=== PATIENT | female | born 1945 | race Caucasian/White ===

== ENCOUNTER 2017-09-25 16:03 | Emergency (ER) | payer SELFPAY ==
[~2017-09-25] VITALS: Ht 170.2 cm; Wt 68.9 kg
[2017-09-25 17:33] LABS: INFLUENZA A PATIENT NEGATIVE (NEGATIVE); INFLUENZA B PATIENT NEGATIVE (NEGATIVE)
[2017-09-25] MEDS ORDERED: AMOX500C PO (18:13)
--- NOTE | 2017-09-25 18:13 | PHYS DOC ---
Past History Past Medical History: Depression, Hypertension, Other Past Surgical History: Colectomy, Hysterectomy, Tonsillectomy Alcohol Use: None Drug Use: None Adult General Chief Complaint Chief Complaint: FLU SYMPTOM HPI HPI Patient is a 71 year old F who presents with cough over the past 3-4days. She states that this after noon she had an episode of coughing that was followed by an episode of a vomiting. She states that she is breathing normally. She denies fever or chills. She has no other associated symptoms and no exacerbating or alleviating factors. Review of Systems Review of Systems Constitutional: Denies fever or chills [] Eyes: Denies change in visual acuity, redness, or eye pain [] HENT: Denies sore throat [] Mild nasal congestion Respiratory: Denies shortness of breath [] Cardiovascular: No additional information not addressed in HPI [] GI: Denies abdominal pain, nausea, vomiting, bloody stools or diarrhea [] : Denies dysuria or hematuria [] Musculoskeletal: Denies back pain or joint pain [] Integument: Denies rash or skin lesions [] Neurologic: Denies headache, focal weakness or sensory changes [] Endocrine: Denies polyuria or polydipsia [] All other systems were reviewed and found to be within normal limits, except as documented in this note. Family History Family History No significant family history reported Current Medications Current Medications Current medications were reviewed Allergies Allergies Allergies reviewed Physical Exam Physical Exam Constitutional: Well developed, well nourished, no acute distress, non-toxic appearance. [] HENT: Normocephalic, atraumatic, bilateral external ears normal, oropharynx moist, no oral exudates. Moderate nasal congestion Eyes: EOMI, conjunctiva normal, no discharge. Neck: Normal range of motion, no tenderness, supple, no stridor. Cardiovascular:Heart rate regular rhythm, Lungs & Thorax: Bilateral breath sounds clear to auscultation [] Abdomen: Bowel sounds normal, soft, no tenderness, no masses, no pulsatile masses. [] Skin: Warm, dry, no erythema, no rash. [] Back: No tenderness, no CVA tenderness. [] Extremities: No tenderness, no cyanosis, no clubbing, ROM intact, no edema. [] Neurologic: Alert and oriented X 3, normal motor function, normal sensory function, no focal deficits noted. [] Psychologic: Affect normal, judgement normal, mood normal. [] Current Patient Data Vital Signs Vital Signs Date Time Temp Pulse Resp B/P (MAP) Pulse Ox O2 Delivery O2 Flow Rate FiO2 09/25/17 16:05 98.3 69 20 98 Room Air Lab Results Laboratory Tests Test 09/25/17 16:52 Influenza Type A (Rapid) Negative (NEGATIVE) Influenza Type B (Rapid) Negative (NEGATIVE) EKG EKG [] Radiology/Procedures Radiology/Procedures Chest xray Impressions: Mild RLL infiltrate Course & Med Decision Making Course & Med Decision Making Pertinent Labs and Imaging studies reviewed. (See chart for details) CURB 65 score: 1 for age Admission was declined. Mary was accompanied by her son, grandson and a son on the phone. Dragon Disclaimer Dragon Disclaimer This electronic medical record was generated, in whole or in part, using a voice recognition dictation system. Departure Departure: Impression: Primary Impression: Pneumonia Disposition: HOME, SELF-CARE Condition: STABLE Patient Instructions: Pneumonia, Adult Additional Instructions: Mary was seen in the emergency department for cough. No emergency medical condition was found on history or physical exam. She had an x-ray which showed possible mild pneumonia. She was started on an antibiotic as precaution. She is encouraged to return to the emergency room immediately if she develops new or worsening symptoms. She is also advised follow-up with her primary care doctor in the next 1-2 days for further management. Scripts Amoxicillin (AMOXICILLIN) 500 Mg Capsule 1 CAP PO TID for 7 Days, #21 CAP Prov: AGNIESZKA WILSON MD 09/25/17 Problem Qualifiers Primary Impression: Pneumonia Pneumonia type: due to unspecified organism Laterality: right Lung location : lower lobe of lung Qualified Codes: J18.1 - Lobar pneumonia, unspecified organism AGNIESZKA WILSON MD Sep 25, 2017 18:13
[2017-09-25 18:25] VITALS: BP 145/55
[2017-09-25] MEDS ORDERED: AMOXICILLIN 250 MG CAPSULE PO ONE (18:30)
--- NOTE | 2017-09-26 08:44 | RAD ---
Chest, 2 views, 09/25/2017: History: Cough, flulike symptoms The heart size and pulmonary vascularity are normal. No pulmonary infiltrates are seen. There is no evidence of pleural fluid. IMPRESSION: No acute cardiopulmonary abnormality is detected.
== END 2017-09-25 18:27 | disposition home or self-care (01) ==
LOC: ER 16:03
DX: J18.1 Lobar pneumonia, unspecified organism (principal); I10 Essential (primary) hypertension; F32.9 Major depressive disorder, single episode, unspecified
CPT/HCPCS: 71020; 87804; 99285

== ENCOUNTER 2017-11-20 10:13 | Inpatient (IN) | payer MEDICARE, OTHER ==
[~2017-11-20] VITALS: Ht 170.2 cm; Wt 68.9 kg
[~2017-11-20 10:13] MED LIST: AMOX500C PO
[2017-11-20] MEDS ORDERED: IV NORMAL SALINE 1,000ML 1,000 ML IV ONE (10:30)
[2017-11-20] MEDS ORDERED: ONDANSETRON PF 4 MG/2 ML VIAL. IV ONE ×2 (10:30→13:00)
[2017-11-20 10:37] LABS: BASO % 1 % (0-3); EOS # 0.2 x10^3/uL (0.0-0.7); EOS % 3 % (0-3); HEMATOCRIT 41.3 % (36.0-47.0); HEMOGLOBIN 14.3 g/dL (12.0-15.5); LYMPH # 1.9 x10^3/uL (1.0-4.8); LYMPH % 34 % (24-48); MEAN CORPUSCULAR HEMOGLOBIN 31 pg (25-35); MEAN CORPUSCULAR HGB CONC 35 g/dL (31-37); MEAN CORPUSCULAR VOLUME 89 fL (79-100); MONO # 0.4 x10^3/uL (0.0-1.1); MONO % 8 % (0-9); NEUT % 55 % (31-73); PLATELET COUNT 341 x10^3/uL (140-400); RED BLOOD COUNT 4.66 x10^6/uL (3.50-5.40); WHITE BLOOD COUNT 5.5 x10^3/uL (4.0-11.0)
--- NOTE | 2017-11-20 10:41 | ED.ADGEN ---
Past History Past Medical History: Depression, Hypertension, Other Past Surgical History: Colectomy, Hysterectomy, Tonsillectomy Alcohol Use: None Drug Use: None Adult General Chief Complaint Chief Complaint nausea and vomiting HPI HPI Patient is a 72 year old female who presents with nausea and vomiting since overnight, multiple episodes of nonbloody nonbilious vomit. She denies any dysuria or increased urinary frequency, no changes in bowel movements. She denies known fevers, no body aches or headaches, no chest pain or shortness of breath. Denies abdominal pain. Pt takes meds for htn but denies a PCP Review of Systems Review of Systems Constitutional: Denies fever or chills [] Eyes: Denies change in visual acuity, redness, or eye pain [] HENT: Denies nasal congestion or sore throat [] Respiratory: Denies cough or shortness of breath [] Cardiovascular: Denies chest pain GI: Denies abdominal pain : Denies dysuria or hematuria [] Musculoskeletal: Denies back pain or joint pain [] Integument: Denies rash or skin lesions [] Neurologic: Denies headache, focal weakness or sensory changes [] Current Medications Current Medications Current Medications Medications (Trade) Dose Ordered Sig/Lisette Start Time Stop Time Status Last Admin Dose Admin Acetaminophen (Tylenol) 650 mg PRN Q4HRS PRN 11/20/17 14:15 11/21/17 14:14 11/21/17 08:40 650 MG Ondansetron HCl (Zofran) 4 mg PRN Q4HRS PRN 11/20/17 14:15 11/21/17 14:14 Sodium Chloride 1,000 ml @ 1,000 mls/hr 1X ONCE 11/20/17 10:30 11/20/17 11:29 DC 11/20/17 10:38 1,000 MLS/HR Physical Exam Physical Exam Constitutional: Well developed, well nourished, ill appearing, non-toxic appearance.actively vomiting clear vomit HENT: Normocephalic, atraumatic, bilateral external ears normal, oropharynx moist, no oral exudates, nose normal. [] Eyes: PERRLA, EOMI, conjunctiva normal, no discharge. [] Neck: Normal range of motion, no tenderness, supple, no stridor. [] Cardiovascular:Heart rate regular with regular rhythm, no murmur [] Lungs & Thorax: Bilateral breath sounds clear to auscultation, no wheeze or crackles Abdomen: Bowel sounds normal, soft, no tenderness, no masses, no pulsatile masses. [] Skin: Warm, dry, no erythema, no rash. [] Back: No tenderness, no CVA tenderness. [] Extremities: No tenderness, no cyanosis, no clubbing, ROM intact, no edema. [] Neurologic: Alert and oriented X 3, normal motor function, normal sensory function, no focal deficits noted. [] Psychologic: Affect normal, judgement normal, mood normal. [] Current Patient Data Vital Signs Vital Signs Date Time Temp Pulse Resp B/P (MAP) Pulse Ox O2 Delivery O2 Flow Rate FiO2 11/20/17 14:06 59 18 145/86 (105) 99 Room Air 11/20/17 10:30 97.5 Lab Results Laboratory Tests Test 11/20/17 10:22 11/20/17 11:40 11/20/17 12:41 11/20/17 13:21 White Blood Count 5.5 x10^3/uL (4.0-11.0) Red Blood Count 4.66 x10^6/uL (3.50-5.40) Hemoglobin 14.3 g/dL (12.0-15.5) Hematocrit 41.3 % (36.0-47.0) Mean Corpuscular Volume 89 fL (79-100) Mean Corpuscular Hemoglobin 31 pg (25-35) Mean Corpuscular Hemoglobin Concent 35 g/dL (31-37) Red Cell Distribution Width 14.0 % (11.5-14.5) Platelet Count 341 x10^3/uL (140-400) Neutrophils (%) (Auto) 55 % (31-73) Lymphocytes (%) (Auto) 34 % (24-48) Monocytes (%) (Auto) 8 % (0-9) Eosinophils (%) (Auto) 3 % (0-3) Basophils (%) (Auto) 1 % (0-3) Neutrophils # (Auto) 3.0 x10^3uL (1.8-7.7) Lymphocytes # (Auto) 1.9 x10^3/uL (1.0-4.8) Monocytes # (Auto) 0.4 x10^3/uL (0.0-1.1) Eosinophils # (Auto) 0.2 x10^3/uL (0.0-0.7) Basophils # (Auto) 0.0 x10^3/uL (0.0-0.2) Sodium Level 140 mmol/L (136-145) Potassium Level 4.0 mmol/L (3.5-5.1) Chloride Level 104 mmol/L (98-107) Carbon Dioxide Level 23 mmol/L (21-32) Anion Gap 13 (6-14) Blood Urea Nitrogen 16 mg/dL (7-20) Creatinine 1.0 mg/dL (0.6-1.0) Estimated GFR (Cockcroft-Gault) 54.2 BUN/Creatinine Ratio 16 (6-20) Glucose Level 105 mg/dL (70-99) H Calcium Level 9.6 mg/dL (8.5-10.1) Total Bilirubin 0.6 mg/dL (0.2-1.0) Aspartate Amino Transferase (AST) 28 U/L (15-37) Alanine Aminotransferase (ALT) 26 U/L (14-59) Alkaline Phosphatase 90 U/L (46-116) Troponin I Quantitative 0.027 ng/mL (0-0.055) 0.038 ng/mL (0-0.055) Total Protein 8.1 g/dL (6.4-8.2) Albumin 4.0 g/dL (3.4-5.0) Albumin/Globulin Ratio 1.0 (1.0-1.7) Urine Collection Type Unknown Urine Color Yellow Urine Clarity Clear Urine pH 6.5 Urine Specific [place] 1.015 Urine Protein Neg (NEG-TRACE) Urine Glucose (UA) Neg mg/dL (NEG) Urine Ketones (Stick) Neg mg/dL (NEG) Urine Blood Neg (NEG) Urine Nitrite Neg (NEG) Urine Bilirubin Neg (NEG) Urine Urobilinogen Dipstick 0.2 mg/dL (0.2 mg/dL) Urine Leukocyte Esterase Trace (NEG) Urine RBC 0 /HPF (0-2) Urine WBC 1-4 /HPF (0-4) Urine Squamous Epithelial Cells Occ /LPF Urine Bacteria 0 /HPF (0-FEW) Urine Mucus Slight /LPF Influenza Type A (Rapid) Negative (NEGATIVE) Influenza Type B (Rapid) Negative (NEGATIVE) EKG EKG 1210: 54 bpm, sinus bradycardia, normal axis, QTC of 474, no ST elevation or depression, nonischemic T waves, low limb voltage, interpreted by me[] Radiology/Procedures Radiology/Procedures [] Course & Med Decision Making Course & Med Decision Making Pertinent Labs and Imaging studies reviewed. (See chart for details) Pt given IV fluids and zofran, no active pain reported. Labs and urinalysis unremarkable but pt still had active nausea and additional antiemetics given. Cause for nausea not clear, does not appear to be gastroenteritis as no BM changes, could be form of cardiac equivalent. Recommended a repeat trop at 4 hours. Troponin increased and pt is still nausea. Recommended admission overnight to control symptoms and check serial enzymes. pt is agreeable. Dr. Peters accepted pt for admission. Final Impression Final Impression Nausea and vomiting Increasing troponin Problems: Dragon Disclaimer Dragon Disclaimer This electronic medical record was generated, in whole or in part, using a voice recognition dictation system. BENSON MARTINS MD Nov 20, 2017 10:41
[2017-11-20 10:54] LABS: CALCIUM 9.6 mg/dL (8.5-10.1); GFR 54.2; TOTAL BILIRUBIN 0.6 mg/dL (0.2-1.0); TOTAL PROTEIN 8.1 g/dL (6.4-8.2)
[2017-11-20 12:01] LABS: BACTERIA,URINE 0 /HPF (0-FEW); BILIRUBIN,URINE NEG (NEG); CLARITY,URINE CLEAR; COLOR,URINE YELLOW; GLUCOSE,URINE NEG (NEG); NITRITE,URINE NEG (NEG); RBC,URINE 0 /HPF (0-2); SQUAMOUS EPITHELIAL CELL,UR OCC /LPF; UROBILINOGEN,URINE 0.2 mg/dL (0.2 mg/dL)
[2017-11-20 13:10] LABS: INFLUENZA A PATIENT NEGATIVE (NEGATIVE); INFLUENZA B PATIENT NEGATIVE (NEGATIVE)
[2017-11-20] MEDS ORDERED: ONDA4TAB10 SL (13:21)
--- NOTE | 2017-11-20 13:55 | EKG ---
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
[2017-11-20] MEDS ORDERED: ONDANSETRON PF 4 MG/2 ML VIAL. IV PRN (14:15)
[2017-11-20 16:52] VITALS: BP 151/67
[2017-11-20] MEDS ORDERED: FLUO20CA8 PO (17:30)
[2017-11-20] MEDS ORDERED: ZOLP10TA4 PO (17:30)
[2017-11-20] MEDS ORDERED: AMLO2.5T PO (17:30)
[2017-11-20] MEDS ORDERED: ZOLPIDEM 5 MG TABLET. PO PRN (18:30)
[2017-11-20] MEDS ORDERED: GABA400C7 PO (18:46)
[2017-11-20] MEDS: IV NORMAL SALINE 1,000ML 1,000 ML IV SCH (19:06)
[2017-11-20 20:52] VITALS: BP 138/65
[2017-11-20] MEDS ORDERED: ZOLPIDEM 5 MG TABLET. PO SCH (21:00)
--- NOTE | 2017-11-20 21:02 | HP ---
ADMIT DATE: 11/20/2017 HISTORY OF PRESENT ILLNESS: The patient is a 72-year-old female patient who came to the Emergency Room complaining of recurrent bouts of nausea and vomiting. She apparently has vomited 4 times yesterday and 4 times this morning. The vomitus was nonbloody. She also complained of generalized aches and pains, but denied any chills, rigors, or fever. None of her family members have similar symptoms. She was evaluated in the Emergency Room and all her lab works are basically within normal range. However, her troponin was slightly elevated and second one was also elevated and the patient was admitted for possible acute gastroenteritis and some form of viral syndrome, although her influenza A and B were negative. She was admitted to continue with IV fluid and antiemetics. We will start her on a clear liquid diet and advance as tolerated. We will also consult the media manager further at the rise in her troponin. PAST MEDICAL HISTORY: Significant for ulcerative colitis, hypertension, depression, insomnia, chronic pain syndrome, Dupuytren contracture, retinitis pigmentosa. 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 PAST SURGICAL HISTORY: Significant for tonsillectomy, total abdominal hysterectomy, bilateral salpingo-oophorectomy, right hand contracture release, right foot fracture, status post open reduction and internal fixation. She also has partial colectomy and colostomy. ALLERGIES: SHE IS ALLERGIC TO CODEINE, SULFA DRUGS, MORPHINE, AND TETRACYCLINE. MEDICATIONS: She is currently on following medications: She is on amlodipine besylate 2.5 mg once a day, fluoxetine 20 mg once a day, zolpidem tartrate 10 mg at bedtime. She is also on gabapentin once a day. FAMILY HISTORY: She has 4 sisters, 3 of them have retinitis pigmentosa. The baby sister did not have the retinitis pigmentosa. Her father in his 90s and mother at the age of 93. SOCIAL HISTORY: She is , has 2 sons. 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 REVIEW OF SYSTEMS: The patient is obviously legally blind. Denied any earache, tinnitus or sensorineural deafness. Denied any nosebleeds, stuffy nose or postnasal drip. Did complain of nausea, vomiting. Denied any diarrhea. Denied any dysuria, frequency, or hematuria. Denied chest pain, shortness of breath, orthopnea, paroxysmal nocturnal dyspnea. Denied any cough, phlegm or hemoptysis. PHYSICAL EXAMINATION: GENERAL: On arrival to the Emergency Room, she looked well and was clearly in no apparent respiratory distress, pale, jaundice, cyanosis or thyromegaly. No jugular venous distention. No limb edema. VITAL SIGNS: Her heart rate was 62, blood pressure was 134/70, temperature was 97.5, respiratory rate was 18 and oxygen saturation was 99%. HEAD, EYES, EARS, NOSE, AND THROAT: Showed normocephalic, atraumatic. NECK: Supple. HEART: Showed normal first and second heart sounds with no gallop, rub or murmur. CHEST: Clear to auscultation. No crepitation or rhonchi. ABDOMEN: Slightly distended, soft, nontender with colostomy in the right lower quadrant. There is no tenderness. No guarding or rigidity. No organomegaly. All hernial orifices intact. Bowel sounds normal. NEUROLOGIC: She is blind. Otherwise, all other cranial nerves are intact. EXTREMITIES: She moves extremities without difficulty. She ambulates without assistance or assistive devices. LABORATORY DATA: On admission showed a white cell count of 5500, hemoglobin 14, hematocrit 41, MCV 89 and platelet count of 341,000. Her chemistry showed a serum sodium 140, potassium 4, chloride 104, bicarbonate 23, anion gap of 13, BUN 16, creatinine 1, estimated GFR was 54 mL per minute. Her glucose was 105, calcium was 9.6. Total bilirubin, AST, ALT, alkaline phosphatase were normal. Total protein 8.1, albumin 4. Urinalysis was essentially unremarkable and her influenza A and B were negative. ASSESSMENT AND PLAN: This is a 72-year-old female patient, who came with recurrent bouts of nausea, vomiting, very likely due to brief form of toxin induced acute gastritis. We will continue with IV fluid, continue with antiemetic, was started on a clear liquid diet and advance it tomorrow. We will consult the media manager, although the patient is really asymptomatic. KAREN LAND MD DR: MARTIN/zainab JOB#: [id number] / [id number]
[2017-11-21] MEDS: ACETAMINOPHEN 325 MG TABLET PO PRN ×2 (00:41→08:40)
[2017-11-21 00:51] VITALS: BP 136/64
[2017-11-21] MEDS: IV NORMAL SALINE 1,000ML 1,000 ML IV SCH ×2 (04:12→13:44)
[2017-11-21 05:07] VITALS: BP 139/64
[2017-11-21 06:13] LABS: HEMOGLOBIN 13.2 g/dL (12.0-15.5); RED BLOOD COUNT 4.38 x10^6/uL (3.50-5.40); WHITE BLOOD COUNT 6.1 x10^3/uL (4.0-11.0)
[2017-11-21 06:24] LABS: ALBUMIN 3.6 g/dL (3.4-5.0); ALBUMIN/GLOBULIN RATIO 1.1 (1.0-1.7); ALK PHOS 78 U/L (46-116); ALT (SGPT) 23 U/L (14-59); ANION GAP 10 (6-14); AST (SGOT) 22 U/L (15-37); BLOOD UREA NITROGEN 12 mg/dL (7-20); BUN/CREATININE RATIO 15 (6-20); CALCIUM 8.8 mg/dL (8.5-10.1); CARBON DIOXIDE 24 mmol/L (21-32); CHLORIDE 107 mmol/L (98-107); CREATINE KINASE 80 U/L (26-192); CREATININE 0.8 mg/dL (0.6-1.0); GFR 70.1; GLUCOSE 92 mg/dL (70-99); POTASSIUM 3.7 mmol/L (3.5-5.1); SODIUM 141 mmol/L (136-145); TOTAL BILIRUBIN 0.6 mg/dL (0.2-1.0); TOTAL PROTEIN 6.9 g/dL (6.4-8.2)
[2017-11-21 06:25] LABS: C REACTIVE PROTEIN < 0.5 mg/L (0-3.3)
[2017-11-21] MEDS ORDERED: PANTOPRAZOLE 40 MG TABLET. PO SCH (07:30)
--- NOTE | 2017-11-21 08:04 | PDOC2 ---
CONSULT Date of Admission DATE: 11/21/17 TIME: 08:01 Reason for Consult: elevated troponin Problem List Problems Medical Problems: (1) Nausea and vomiting Status: Acute History of Present Illness Ms Bright is a 72 year old female who presented with complaints of nausea and vomiting for 2 days. She was noted to have a mildly elevated troponin so consult was called. She denies any fever, chills, abdominal pain. She denies chest pain or discomfort, denies dyspnea, palpitations, lightheadedness or congestive symptoms. 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 Past Medical History ulcerative colitis, hypertension, depression, insomnia, chronic pain syndrome, Dupuytren contracture, retinitis pigmentosa and blindness. Past Surgical History tonsillectomy, total abdominal hysterectomy, bilateral salpingo-oophorectomy, right hand contracture release, right foot fracture, status post open reduction and internal fixation, partial colectomy and ileostomy. Family History She has 4 sisters, 3 of them have retinitis pigmentosa. Her mother and father in their 90s. Social History She is , has 2 sons. She has never smoked, does not drink alcohol or take illicit drugs. Current Medications Current Medications Ondansetron HCl (Zofran) 4 mg 1X ONCE IV Last administered on 11/20/17at 10:38; Start 11/20/17 at 10:30; Stop 11/20/17 at 10:42; Status DC Sodium Chloride 1,000 ml @ 1,000 mls/hr 1X ONCE IV Last administered on at 10:38; Start 11/20/17 at 10:30; Stop 11/20/17 at 11:29; Status DC Ondansetron HCl (Zofran) 4 mg 1X ONCE IV Last administered on 11/20/17at 12:48; Start 11/20/17 at 13:00; Stop 11/20/17 at 13:01; Status DC Ondansetron HCl (Zofran) 4 mg PRN Q4HRS PRN IV NAUSEA/VOMITING; Start 11/20/17 at 14:15; Stop 11/21/17 at 14:14 Acetaminophen (Tylenol) 650 mg PRN Q4HRS PRN PO FEVER Last administered on at 00:41; Start 11/20/17 at 14:15; Stop 11/21/17 at 14:14 Sodium Chloride 1,000 ml @ 100 mls/hr Q10H IV Last administered on 11/21/17at 04 :12; Start 11/20/17 at 18:30 Pantoprazole Sodium (Protonix) 40 mg DAILYAC PO ; Start 11/21/17 at 07:30 Amlodipine Besylate (Norvasc) 2.5 mg DAILY PO ; Start 11/21/17 at 09:00 Fluoxetine HCl (PROzac) 20 mg DAILY PO ; Start 11/21/17 at 09:00 Zolpidem Tartrate (Ambien) 5 mg QHS PO Last administered on 11/20/17at 20:55; Start 11/20/17 at 21:00 Zolpidem Tartrate (Ambien) 5 mg PRN QHS PRN PO INSOMNIA; Start 11/20/17 at 18:30 Gabapentin (Neurontin) 400 mg DAILY PO ; Start 11/21/17 at 09:00 Active Scripts Active Amoxicillin 500 Mg Capsule 1 Cap PO TID 7 Days Reported Gabapentin 400 Mg Capsule 400 Mg PO DAILY Amlodipine Besylate 2.5 Mg Tablet 2.5 Mg PO DAILY Fluoxetine Hcl 20 Mg Capsule 20 Mg PO DAILY Zolpidem Tartrate 10 Mg Tablet 10 Mg PO HS Allergies: Coded Allergies: Sulfa (Sulfonamide Antibiotics) (Verified Allergy, Intermediate, 11/21/17) codeine (Verified Allergy, Intermediate, 11/21/17) morphine (Verified Allergy, Intermediate, 11/21/17) tetracycline (Verified Allergy, Intermediate, 11/21/17) Review of System as per HPI or negative General: Alert, Oriented X3, Cooperative, No acute distress HEENT: Atraumatic, Mucous membr. moist/pink, Other (blind) Lungs: Clear to auscultation, Normal air movement Heart: Regular rate, Normal S1, Normal S2, Other (no significant murmurs, no gallops, clicks or rubs) Abdomen: Normal bowel sounds, Soft Extremities: No cyanosis, Normal pulses Neuro: Normal speech, Strength at 5/5 X4 ext Psych/Mental Status: Mental status NL, Mood NL VITALS Vital Signs Date Time Temp Pulse Resp B/P (MAP) Pulse Ox O2 Delivery O2 Flow Rate FiO2 11/21/17 05:07 50 23 139/64 (89) 97 Room Air 11/20/17 20:52 98.0 Labs Laboratory Tests Test 11/20/17 10:22 11/20/17 11:40 11/20/17 12:41 11/20/17 13:21 White Blood Count 5.5 x10^3/uL (4.0-11.0) Red Blood Count 4.66 x10^6/uL (3.50-5.40) Hemoglobin 14.3 g/dL (12.0-15.5) Hematocrit 41.3 % (36.0-47.0) Mean Corpuscular Volume 89 fL (79-100) Mean Corpuscular Hemoglobin 31 pg (25-35) Mean Corpuscular Hemoglobin Concent 35 g/dL (31-37) Red Cell Distribution Width 14.0 % (11.5-14.5) Platelet Count 341 x10^3/uL (140-400) Neutrophils (%) (Auto) 55 % (31-73) Lymphocytes (%) (Auto) 34 % (24-48) Monocytes (%) (Auto) 8 % (0-9) Eosinophils (%) (Auto) 3 % (0-3) Basophils (%) (Auto) 1 % (0-3) Neutrophils # (Auto) 3.0 x10^3uL (1.8-7.7) Lymphocytes # (Auto) 1.9 x10^3/uL (1.0-4.8) Monocytes # (Auto) 0.4 x10^3/uL (0.0-1.1) Eosinophils # (Auto) 0.2 x10^3/uL (0.0-0.7) Basophils # (Auto) 0.0 x10^3/uL (0.0-0.2) Sodium Level 140 mmol/L (136-145) Potassium Level 4.0 mmol/L (3.5-5.1) Chloride Level 104 mmol/L (98-107) Carbon Dioxide Level 23 mmol/L (21-32) Anion Gap 13 (6-14) Blood Urea Nitrogen 16 mg/dL (7-20) Creatinine 1.0 mg/dL (0.6-1.0) Estimated GFR (Cockcroft-Gault) 54.2 BUN/Creatinine Ratio 16 (6-20) Glucose Level 105 mg/dL (70-99) Calcium Level 9.6 mg/dL (8.5-10.1) Total Bilirubin 0.6 mg/dL (0.2-1.0) Aspartate Amino Transf (AST/SGOT) 28 U/L (15-37) Alanine Aminotransferase (ALT/SGPT) 26 U/L (14-59) Alkaline Phosphatase 90 U/L (46-116) Troponin I Quantitative 0.027 ng/mL (0-0.055) 0.038 ng/mL (0-0.055) Total Protein 8.1 g/dL (6.4-8.2) Albumin 4.0 g/dL (3.4-5.0) Albumin/Globulin Ratio 1.0 (1.0-1.7) Urine Collection Type Unknown Urine Color Yellow Urine Clarity Clear Urine pH 6.5 Urine Specific [place] 1.015 Urine Protein Neg (NEG-TRACE) Urine Glucose (UA) Neg mg/dL (NEG) Urine Ketones (Stick) Neg mg/dL (NEG) Urine Blood Neg (NEG) Urine Nitrite Neg (NEG) Urine Bilirubin Neg (NEG) Urine Urobilinogen Dipstick 0.2 mg/dL (0.2 mg/dL) Urine Leukocyte Esterase Trace (NEG) Urine RBC 0 /HPF (0-2) Urine WBC 1-4 /HPF (0-4) Urine Squamous Epithelial Cells Occ /LPF Urine Bacteria 0 /HPF (0-FEW) Urine Mucus Slight /LPF Influenza Type A (Rapid) Negative (NEGATIVE) Influenza Type B (Rapid) Negative (NEGATIVE) Test 11/20/17 16:00 11/20/17 19:20 11/21/17 05:38 Nasal Screen MRSA (PCR) Negative (Negative) Troponin I Quantitative 0.020 ng/mL (0-0.055) < 0.017 ng/mL (0-0.055) White Blood Count 6.1 x10^3/uL (4.0-11.0) Red Blood Count 4.38 x10^6/uL (3.50-5.40) Hemoglobin 13.2 g/dL (12.0-15.5) Hematocrit 39.0 % (36.0-47.0) Mean Corpuscular Volume 89 fL (79-100) Mean Corpuscular Hemoglobin 30 pg (25-35) Mean Corpuscular Hemoglobin Concent 34 g/dL (31-37) Red Cell Distribution Width 14.0 % (11.5-14.5) Platelet Count 327 x10^3/uL (140-400) Erythrocyte Sedimentation Rate 18 (0-25) Sodium Level 141 mmol/L (136-145) Potassium Level 3.7 mmol/L (3.5-5.1) Chloride Level 107 mmol/L (98-107) Carbon Dioxide Level 24 mmol/L (21-32) Anion Gap 10 (6-14) Blood Urea Nitrogen 12 mg/dL (7-20) Creatinine 0.8 mg/dL (0.6-1.0) Estimated GFR (Cockcroft-Gault) 70.1 BUN/Creatinine Ratio 15 (6-20) Glucose Level 92 mg/dL (70-99) Calcium Level 8.8 mg/dL (8.5-10.1) Total Bilirubin 0.6 mg/dL (0.2-1.0) Aspartate Amino Transf (AST/SGOT) 22 U/L (15-37) Alanine Aminotransferase (ALT/SGPT) 23 U/L (14-59) Alkaline Phosphatase 78 U/L (46-116) Creatine Kinase 80 U/L (26-192) C-Reactive Protein < 0.5 mg/L (0-3.3) Total Protein 6.9 g/dL (6.4-8.2) Albumin 3.6 g/dL (3.4-5.0) Albumin/Globulin Ratio 1.1 (1.0-1.7) Lipase 1705 U/L (73-393) Images EKG - sinus rhythm without acute abnormalities Assessment/Plan 1. Elevated troponin - remains indeterminate range. No acute ischemic EKG changes. Angina free. Check echo and if wnl, no further cardiac workup indicated. 2. acute gastroenteritis - mgmt per PCP 3. elevated lipase, ?acute pancreatitis - abd sono pending. mgmt per PCP 4. hypertension - controlled on current therapy. Problems: MARLON CARDOZA APRN Nov 21, 2017 08:04
[2017-11-21 08:35] VITALS: BP 138/67
[2017-11-21] MEDS ORDERED: amLODIPine BESYLATE 2.5 MG TABLET PO SCH (09:00)
[2017-11-21] MEDS ORDERED: FLUoxetine HCL 20 MG CAPSULE PO SCH (09:00)
[2017-11-21] MEDS ORDERED: GABAPENTIN 400 MG CAPSULE. PO SCH (09:00)
--- NOTE | 2017-11-21 09:56 | RAD ---
Complete abdominal ultrasound History: Nausea, elevated lipase. Comparison: None. Procedure: Transabdominal ultrasound images are obtained. Findings: Only a small portion of the pancreas is visualized. Visualized portions of the pancreas appear grossly unremarkable. No convincing peripancreatic fluid is seen. Liver is normal in echogenicity. No focal hepatic masses are identified. Right hepatic lobe measures 14.0 cm in length. Gallbladder has an unremarkable appearance. Common bile duct measures normally at 5 mm in diameter. Spleen is unremarkable. Splenic length is 9.8 cm. Right kidney measures 10.0 cm in length. Right kidney is without evidence of obstruction or stone. Left kidney measures 9.6 cm in length. Left kidney demonstrates a nonobstructing stone measuring 7 mm. Visualized portions of the aorta and IVC have normal caliber. Aortic atherosclerosis is seen. Impression: 1. Only small portion of pancreas is visualized which is grossly unremarkable. 2. No evidence of cholelithiasis or cholecystitis. 3. Nonobstructive left nephrolith.
[2017-11-21 11:15] VITALS: BP 117/55
[2017-11-21] MEDS ORDERED: ONDA4TAB7 PO (13:58)
--- NOTE | 2017-11-21 14:06 | CARD ---
MR#: [id number] Date of Study: 11/21/2017 Ordering Physician: MARLON CARDOZA, Referring Physician: KAREN LAND Tech: [facility] APPROVED REPORT EXAM: Two-dimensional and M-mode echocardiogram with Doppler and color Doppler. Other Information Quality : AverageHR: 65bpm INDICATION Elevated Troponin 2D DIMENSIONS IVSd0.7 (0.7-1.1cm)Aortic Root(2D)2.7 (2.0-3.7cm) LVDd4.9 (3.9-5.9cm)LVOT Diameter1.8 (1.8-2.4cm) PWd0.9 (0.7-1.1cm)LVDs3.5 (2.5-4.0cm) FS (%) 28.7 %SV62.7 ml LVEF(%)55.0 (>50%) M-Mode DIMENSIONS LVDd4.03 (4.0-5.6cm)FS (%) 42 % LVDs2.34 (2.0-3.8cm)ESV(Teich)18.9 ml LVEF(%)73 (>50%) Aortic Valve AoV Peak Francesco.148.4cm/sAoV VTI34.1cm AO Peak GR.8.8mmHgLVOT Peak Francesco.99.6cm/s LVOT VTI 25.15cmAO Mean GR.4mmHg SARAH (VMAX)1.39ir7LCB (VTI)1.82cm2 Mitral Valve MV E Wmkksodo998.6cm/sMV DECEL [id number] MV A Ancuqfze41.4cm/sMV ERZ74gb E/A Ratio1.5MVA (PHT)5.09cm2 Pulmonary Valve PV Peak Czylivsv94.6cm/sPV Peak Grad.3mmHg Tricuspid Valve TR P. Ghvqkafp789nq/sTR Peak Gr.20mmHg Pulmonary Vein S1 Dyrykxeu99.0cm/sD2 Zplhhnrm55.8cm/s LEFT VENTRICLE The left ventricle is normal size. There is normal left ventricular wall thickness. The left ventricu lar systolic function is normal. The ejection fraction is estimated at 55%. There is normal LV segmen dacia wall motion. Transmitral Doppler flow pattern is Grade I-abnormal relaxation pattern. RIGHT VENTRICLE The right ventricle is normal size. The right ventricular systolic function is normal. ATRIA The left atrium size is normal. The right atrium size is normal. The interatrial septum is intact wit h no evidence for an atrial septal defect or patent foramen ovale as noted on 2-D or Doppler imaging. AORTIC VALVE The aortic valve is mildly thickened. The aortic valve is mildly sclerotic. Doppler and Color Flow re vealed no significant aortic regurgitation. There is no significant aortic valvular stenosis. There i s no aortic valvular vegetation. MITRAL VALVE The mitral valve is thickened but opens well. There is no evidence of mitral valve prolapse. There is no mitral valve stenosis. Doppler and Color Flow revealed no mitral valve regurgitation noted. TRICUSPID VALVE The tricuspid valve is normal in structure and function. Doppler and Color Flow revealed trace to mil d tricuspid regurgitation. There is no tricuspid valve prolapse or vegetation. There is no tricuspid valve stenosis. PULMONIC VALVE The pulmonic valve is not well visualized. Doppler and Color Flow revealed no pulmonic valvular regur gitation. There is no pulmonic valvular stenosis. GREAT VESSELS The aortic root is normal in size. The IVC is enlarged in size and collapses >50% with inspiration. PERICARDIAL EFFUSION There is no pleural effusion. There is no evidence of significant pericardial effusion. Critical Notification Critical Value: No <Conclusion> Technically difficult study. The left ventricular systolic function is normal. The ejection fraction is estimated at 55%. There is normal LV segmental wall motion. Doppler and Color Flow revealed trace to mild tricuspid regurgitation. There is no evidence of significant pericardial effusion. Signed by : Abdi Varela, Electronically Approved : 11/21/2017 14:05:40
--- NOTE | 2017-11-22 00:13 | DS ---
DATE OF DISCHARGE: 11/21/2017 HOSPITAL COURSE: The patient is resting slightly propped up in bed, in no apparent distress. On questioning her, she denied any further episodes of nausea and vomiting. Denied any abdominal pain. She has been tolerating her diet without any problem; however, we checked her serum lipase that was 1700. I went through all her medication to see if one of them can cause the pancreatitis and none of them has this side effect. We did abdominal ultrasound, which basically showed that only small portion of the pancreas visualized. Visualized portion of the pancreas appears grossly unremarkable. No convincing peripancreatic fluid is seen. The liver is normal in echogenicity. No focal hepatic masses are identified. Right hepatic lobe measures 14 cm in length. The gallbladder has unremarkable appearance. Common bile duct measures normally at 5 mm in diameter. Spleen is unremarkable. The kidneys are also normal without evidence of obstruction or stone. The left kidney has demonstrated nonobstructing stone measuring 7 mm. The visualized portion of the aorta and IVC have normal caliber, aortic atherosclerosis seen. We did repeat her serum lipase which was normal at 337. As the patient is asymptomatic, tolerating her food without any problem. A decision was made to discharge her home to continue on her home medication. PHYSICAL EXAMINATION: GENERAL: When I examined her today, she looked well and was clearly in no apparent respiratory distress, pale, jaundice, cyanosis, or thyromegaly. No jugular venous distension. No limb edema. VITAL SIGNS: Her heart rate was 59, blood pressure was 117/55, temperature was 97.9, respiratory rate was 18 and oxygen saturation was 97%. The rest of clinical examination is unremarkable. Her intake was 2100. No output was recorded. LABORATORY DATA: This morning showed serum sodium 141, potassium 3.7, chloride 107, bicarbonate 24, anion gap of 10, BUN 12, creatinine 0.8, estimated GFR was 70 mL per minute. Her glucose was 92, calcium was 8.8. Total bilirubin, AST, ALT, alkaline phosphatase were normal. Her total protein was 6.9, albumin was 3.6. Serum lipase was 1700. Her white cell count was 6100, hemoglobin 13, hematocrit 39, MCV 89 and platelet count 327,000. Her sedimentation rate was 18. Her C-reactive protein was less than 0.5. We will repeat her lipase was 337. DISCHARGE MEDICATIONS: She was discharged home to continue on her amlodipine 2.5 mg once a day, fluoxetine 20 mg once a day, gabapentin 400 mg once a day, Ambien 10 mg at bedtime. She was also given a prescription for ondansetron 4 mg ODT every 6 hours as needed. FINAL DISCHARGE DIAGNOSES: 1. Recurrent bouts of nausea, vomiting due to acute pancreatitis that has resolved. 2. Other medical problems include ulcerative colitis, status post total colectomy and colostomy. 3. Hypertension. 4. Depression. 5. Insomnia. 6. Chronic pain syndrome. 7. Dupuytren contracture. 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 KAREN LAND MD DR: MARTIN/zainab JOB#: [id number] / [id number]
== END 2017-11-21 14:15 | disposition home or self-care (01) | DRG 391 ==
LOC: ER 10:13 → ICU 14:20
PROVIDERS: ADMIT Internal Medicine; ATTEND Internal Medicine
DX: K52.9 Noninfective gastroenteritis and colitis, unspecified (principal); K85.90 Acute pancreatitis without necrosis or infection, unspecified; F32.9 Major depressive disorder, single episode, unspecified; I10 Essential (primary) hypertension; G89.4 Chronic pain syndrome; G47.00 Insomnia, unspecified; M72.0 Palmar fascial fibromatosis [Dupuytren]; K29.00 Acute gastritis without bleeding; I70.0 Atherosclerosis of aorta; N20.0 Calculus of kidney; H35.52 Pigmentary retinal dystrophy; Z90.710 Acquired absence of both cervix and uterus; Z93.3 Colostomy status; Z90.49 Acquired absence of other specified parts of digestive tract; Z90.89 Acquired absence of other organs; Z90.722 Acquired absence of ovaries, bilateral; Z90.79 Acquired absence of other genital organ(s); Z88.2 Allergy status to sulfonamides; Z88.5 Allergy status to narcotic agent; Z88.1 Allergy status to other antibiotic agents
CPT/HCPCS: 36415; 76700; 80053; 81001; 82550; 83690; 84484; 85025; 85027; 85651; 86140; 87086; 87641; 87804; 93005; 93306; 96361; 96374; 96376; J2405; 99285-25; J7030